=== PATIENT | male | born 1990 | race Hispanic/Latino ===

== ENCOUNTER 2018-04-09 02:12 | Emergency (ER) | payer OTHER ==
[2018-04-09] MEDS ORDERED: NEOMYCIN/POLYMYXIN/HC OTIC SUSP 10ML BOTTLE ONE (03:14)
[2018-04-09] MEDS ORDERED: CEFTRIAXONE SODIUM 1 GM ONE (03:15)
[2018-04-09] MEDS ORDERED: HYDROCODONE/ACETAMINOPHEN 10/325 MG TAB ONE (03:16)
[2018-04-09] MEDS ORDERED: AZITHROMYCIN 250 MG TABLET PO ONE (03:16)
[2018-04-09] MEDS ORDERED: LIDOCAINE HCL MPF 1% 5ML VIAL ONE (03:17)
== END 2018-04-09 03:59 | disposition home or self-care (01) ==
LOC: EDH 02:12
DX: H60.311 Diffuse otitis externa, right ear (principal); H65.191 Other acute nonsuppurative otitis media, right ear
CPT/HCPCS: 96372; 99284; J0696; J3490

== ENCOUNTER 2018-04-20 03:45 | Emergency (ER) | payer OTHER | END 2018-04-20 05:57 | disposition home or self-care (01) | LOC: EDH 03:45 | DX: H60.91 Unspecified otitis externa, right ear (principal); Z90.49 Acquired absence of other specified parts of digestive tract | CPT/HCPCS: 99281 ==